=== PATIENT | female | born 1995 | race Caucasian/White ===

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

== ENCOUNTER 2018-03-01 02:19 | Emergency (ER) | payer OTHER ==
[~2018-03-01] VITALS: Ht 149.8 cm; Wt 54.9 kg
[2018-03-01] MEDS ORDERED: AMOXICILLIN500 M2 PO (03:38)
[2018-03-01 03:40] VITALS: BP 125/50
== END 2018-03-01 03:52 | disposition home or self-care (01) ==
LOC: ED 02:19
DX: J02.9 Acute pharyngitis, unspecified (principal)

== ENCOUNTER 2018-07-03 14:51 | Emergency (ER) | payer OTHER ==
[~2018-07-03] VITALS: Ht 152.4 cm; Wt 55.3 kg
[2018-07-03 14:51] VITALS: BP 125/59
[~2018-07-03 14:51] MED LIST changes: +AMOXICILLIN500 M2 PO; +Tobrex Ophth S2.5 ML OPH
[2018-07-03] MEDS ORDERED: ZITHROMAX250 MG PO (15:52)
== END 2018-07-03 16:00 | disposition home or self-care (01) ==
LOC: ED 14:51
DX: J02.9 Acute pharyngitis, unspecified (principal); H66.92 Otitis media, unspecified, left ear; Z79.2 Long term (current) use of antibiotics

== ENCOUNTER 2019-07-08 23:18 | Emergency (ER) | payer OTHER ==
[~2019-07-08] VITALS: Ht 154.9 cm; Wt 58.1 kg
[~2019-07-08 23:18] MED LIST changes: +ZITHROMAX250 MG PO
[2019-07-08 23:54] VITALS: BP 102/75
[2019-07-09 00:34] LABS: HEMATOCRIT 39.9 % (37.0-47.0); HEMOGLOBIN 13.2 g/dl (12.0-16.0); MEAN CELL VOLUME 89.5 fl (81.0-99.0); MEAN CORPUSCULAR HGB 29.6 pg (27.0-31.0); MEAN CORPUSCULAR HGB CONC 33.1 g/dl (33.0-37.0); MEAN PLATELET VOLUME 9.7 fl (9.6-12.3); PLATELET COUNT AUTOMATED 244 10*3/uL (130-400); RED BLOOD COUNT 4.46 10*6/uL (4.10-5.10); RED CELL DISTRI WIDTH 12.6 % (0-14.5); WHITE BLOOD COUNT 11.4 10*3/uL (4.8-10.8)
[2019-07-09 00:49] LABS: ALBUMIN 4.1 gm/dl (3.1-4.5); ALKALINE PHOSPHATASE 68 U/L (45-117); BUN 8 mg/dl (7-24); CHLORIDE 103 mmol/L (98-107); CREATININE 0.77 mg/dL (0.55-1.02); POTASSIUM 3.3 mmol/L (3.5-5.1); SGOT/AST 11 IU/L (3-35); SGPT/ALT 16 U/L (12-78); SODIUM 136 mmol/L (136-145); TOTAL PROTEIN 7.9 gm/dL (6.4-8.2)
[2019-07-09 00:53] LABS: PLATELET SUFFICIENCY NORMAL (NORMAL); TOTAL CELLS COUNTED 100 #CELLS
[2019-07-09 02:11] LABS: BILIRUBIN NEGATIVE (NEGATIVE); BLOOD NEGATIVE (NEGATIVE); COLOR YELLOW (YELLOW); GLUCOSE NEGATIVE (NEGATIVE); KETONE NEGATIVE (NEGATIVE); LEUKO ESTERASE NEGATIVE (NEGATIVE); NITRITE NEGATIVE (NEGATIVE); PH 7.5 (5.0-9.0)
[2019-07-09 02:16] LABS: EPITHELIAL CELLS 45-50
[2019-07-09 02:17] LABS: CLARITY SL CLOUDY (CLEAR)
[2019-07-09] MEDS ORDERED: TAMIFLU 75MG CA75 MG PO (03:05)
== END 2019-07-09 01:17 | disposition home or self-care (01) ==
LOC: ED 23:18
PROVIDERS: Physician Assistant
DX: J11.1 Influenza due to unidentified influenza virus with other respiratory manifestations (principal); B34.9 Viral infection, unspecified; J45.909 Unspecified asthma, uncomplicated

== ENCOUNTER 2020-11-02 02:19 | Emergency (ER) | payer OTHER ==
[~2020-11-02] VITALS: Ht 162.5 cm; Wt 61.7 kg
[~2020-11-02 02:19] MED LIST changes: +TAMIFLU 75MG CA75 MG PO
[2020-11-02 02:42] VITALS: BP 137/81
[2020-11-02] MEDS ORDERED: PENICILLIN VK500 MG PO (02:52)
== END 2020-11-02 03:17 | disposition home or self-care (01) ==
LOC: ED 02:19
DX: K04.7 Periapical abscess without sinus (principal); J45.909 Unspecified asthma, uncomplicated; Z79.899 Other long term (current) drug therapy; Z79.2 Long term (current) use of antibiotics

== ENCOUNTER 2020-12-10 14:59 | Emergency (ER) | payer OTHER ==
[~2020-12-10] VITALS: Ht 152.4 cm; Wt 54.9 kg
[~2020-12-10 14:59] MED LIST changes: +PENICILLIN VK500 MG PO
[2020-12-10 15:14] VITALS: BP 118/71
[2020-12-10 17:25] LABS: BILIRUBIN Negative (Negative); BLOOD Negative (Negative); CLARITY Turbid (Clear); COLOR Yellow (Yellow); GLUCOSE Negative (Negative); KETONE Negative (Negative); LEUKO ESTERASE 2+ (Negative); NITRITE Negative (Negative)
[2020-12-10 17:27] LABS: PH 8.5 (4.5-8.0)
[2020-12-10 17:39] LABS: BACTERIA 2+
[2020-12-10] MEDS ORDERED: DOXYCYCLINE100 M3 PO (17:40)
[2020-12-10] MEDS ORDERED: FLAGYL500 MG PO (17:40)
== END 2020-12-10 18:00 | disposition home or self-care (01) ==
LOC: ED 14:59
PROVIDERS: Physician Assistant
DX: Z20.2 Contact with and (suspected) exposure to infections with a predominantly sexual mode of transmission (principal); F17.200 Nicotine dependence, unspecified, uncomplicated; Z79.899 Other long term (current) drug therapy

== ENCOUNTER 2021-12-12 12:11 | Emergency (ER) | payer OTHER ==
[~2021-12-12] VITALS: Wt 57.2 kg
[~2021-12-12 12:11] MED LIST changes: +DOXYCYCLINE100 M3 PO; +FLAGYL500 MG PO
[2021-12-12 12:18] VITALS: BP 116/70
[2021-12-12 12:44] LABS: BILIRUBIN Negative (Negative); BLOOD Trace-Lysed (Negative); CLARITY Cloudy (Clear); COLOR Yellow (Yellow); GLUCOSE Negative (Negative); KETONE Negative (Negative); LEUKO ESTERASE 1+ (Negative); NITRITE Negative (Negative); PH 5.5 (4.5-8.0)
[2021-12-12 12:51] LABS: BACTERIA 3+; EPITHELIAL CELLS TNTC; MUCOUS 3+
== END 2021-12-12 13:00 | disposition home or self-care (01) ==
LOC: ED 12:11
PROVIDERS: Emergency Medicine
DX: K80.80 Other cholelithiasis without obstruction (principal); R10.2 Pelvic and perineal pain

== ENCOUNTER → 2021-12-15 | Outpatient (CLI) | payer OTHER | END | disposition home or self-care (01) | LOC: US 08:30 | PROVIDERS: ATTEND Emergency Medicine | DX: K50.80 Crohn's disease of both small and large intestine without complications (principal); R10.2 Pelvic and perineal pain ==

== ENCOUNTER 2022-07-18 23:01 | Emergency (ER) | payer OTHER ==
[~2022-07-18] VITALS: Ht 152.4 cm; Wt 55.8 kg
[2022-07-18 23:07] VITALS: BP 131/81
[2022-07-19] MEDS ORDERED: AMOX-CLAV 875-1 EACH PO (00:08)
== END 2022-07-19 00:15 | disposition home or self-care (01) ==
LOC: ED 23:01
DX: J02.9 Acute pharyngitis, unspecified (principal); Z20.822 Contact with and (suspected) exposure to COVID-19; R05.9 Cough, unspecified; R50.9 Fever, unspecified; R52 Pain, unspecified; Z79.2 Long term (current) use of antibiotics; Z79.899 Other long term (current) drug therapy

== ENCOUNTER 2022-11-25 16:06 | Emergency (ER) | payer OTHER ==
[~2022-11-25] VITALS: Ht 152.4 cm; Wt 54.4 kg
[~2022-11-25 16:06] MED LIST changes: +AMOX-CLAV 875-1 EACH PO
[2022-11-25 16:20] VITALS: BP 115/71
== END 2022-11-25 18:41 | disposition left against medical advice (07) ==
LOC: ED 16:06
DX: N89.9 Noninflammatory disorder of vagina, unspecified (principal); Z53.21 Procedure and treatment not carried out due to patient leaving prior to being seen by health care provider

== ENCOUNTER 2023-03-24 13:44 | Emergency (ER) | payer OTHER ==
[~2023-03-24] VITALS: Ht 152.4 cm; Wt 56.7 kg
[2023-03-24 13:53] VITALS: BP 118/74
[2023-03-24] MEDS ORDERED: AMOX-CLAV 875-1 EACH PO (14:00)
== END 2023-03-24 14:13 | disposition home or self-care (01) ==
LOC: ED 13:44
DX: J02.9 Acute pharyngitis, unspecified (principal); H66.91 Otitis media, unspecified, right ear; R50.9 Fever, unspecified

== ENCOUNTER 2023-06-24 02:12 | Emergency (ER) | payer OTHER ==
[2023-06-24 02:25] VITALS: BP 125/65
[2023-06-24 02:52] LABS: BILIRUBIN Negative (Negative); BLOOD 1+ (Negative); CLARITY Cloudy (Clear); COLOR Yellow (Yellow); GLUCOSE Negative (Negative); KETONE Negative (Negative); LEUKO ESTERASE Trace (Negative); NITRITE Negative (Negative); PH 5.5 (4.5-8.0); SPECIFIC GRAVITY 1.025 (1.001-1.030)
[2023-06-24 03:01] LABS: BACTERIA TRACE; EPITHELIAL CELLS TNTC; RBC 0-2 rbc/hpf (0-2)
== END 2023-06-24 03:32 | disposition home or self-care (01) ==
LOC: ED 02:12
PROVIDERS: Internal Medicine
DX: Z32.01 Encounter for pregnancy test, result positive (principal); J45.909 Unspecified asthma, uncomplicated; Z79.899 Other long term (current) drug therapy

== ENCOUNTER → 2023-07-11 | Outpatient (CLI) | payer OTHER | END | disposition home or self-care (01) | LOC: US 15:00 | PROVIDERS: ATTEND Nurse Practitioner Women's Health | DX: Z34.81 Encounter for supervision of other normal pregnancy, first trimester (principal); Z3A.01 Less than 8 weeks gestation of pregnancy ==

== ENCOUNTER 2023-07-24 11:02 | Emergency (ER) | payer OTHER ==
[~2023-07-24] VITALS: Wt 54.4 kg
[2023-07-24 11:11] VITALS: BP 115/47
[2023-07-24 12:27] LABS: BASO % 0.3 % (0.0-1.0); HEMATOCRIT 37.2 % (37.0-47.0); LYMPH # 1.7 10*3/uL (1.3-4.4); LYMPH % 16.3 % (27.0-41.0); MEAN CELL VOLUME 85.5 fl (81.0-99.0); MEAN CORPUSCULAR HGB 29.9 pg (27.0-31.0); MEAN CORPUSCULAR HGB CONC 34.9 g/dl (33.0-37.0); MEAN PLATELET VOLUME 8.7 fl (9.6-12.3); MONO # 0.4 10*3/uL (0.1-1.0); MONO % 3.7 % (3.0-9.0); NEUT # 8.1 10*3/uL (2.3-7.9); NEUT % 79.4 % (47.0-73.0); PLATELET COUNT AUTOMATED 321 10*3/uL (130-400); RED BLOOD COUNT 4.35 10*6/uL (4.10-5.10); RED CELL DISTRI WIDTH 12.6 % (0-14.5); WHITE BLOOD COUNT 10.2 10*3/uL (4.8-10.8)
[2023-07-24 12:52] LABS: BILIRUBIN Negative (Negative); BLOOD Negative (Negative); CLARITY Clear (Clear); COLOR Yellow (Yellow); GLUCOSE Negative (Negative); KETONE 4+ (Negative); LEUKO ESTERASE Trace (Negative); NITRITE Negative (Negative); PH 5.5 (4.5-8.0); SPECIFIC GRAVITY 1.025 (1.001-1.030); UROBILINOGEN 0.2 E.U./dl (0.0-1.0)
[2023-07-24 13:01] LABS: BACTERIA 2+; MUCOUS 1+
[2023-07-24 13:02] LABS: ALKALINE PHOSPHATASE 40 U/L (46-116); BUN 8 mg/dl (9-23); CHLORIDE 106 mmol/L (98-107); LIPASE 33 U/L (12-53); POTASSIUM 3.8 mmol/L (3.4-5.1); TOTAL PROTEIN 7.2 gm/dL (6.0-8.0)
[2023-07-24 13:04] LABS: BETA-HCG, QUANT > 200000.0 mIU/mL (3-10); SGPT/ALT < 7 U/L (5-49)
[2023-07-24] MEDS ORDERED: CEPHALEXIN500 M1 PO (14:07)
== END 2023-07-24 15:57 | disposition home or self-care (01) ==
LOC: ED 11:02
PROVIDERS: Nurse Practitioner Family
DX: O23.41 Unspecified infection of urinary tract in pregnancy, first trimester (principal); N39.0 Urinary tract infection, site not specified; O21.9 Vomiting of pregnancy, unspecified; J45.909 Unspecified asthma, uncomplicated; R10.2 Pelvic and perineal pain; Z3A.09 9 weeks gestation of pregnancy; Z86.718 Personal history of other venous thrombosis and embolism

== ENCOUNTER 2023-08-21 14:57 | Emergency (ER) | payer OTHER ==
[~2023-08-21] VITALS: Ht 152.4 cm; Wt 51.3 kg
[~2023-08-21 14:57] MED LIST changes: +CEPHALEXIN500 M1 PO
[2023-08-21 15:14] VITALS: BP 132/74
[2023-08-21 15:44] LABS: BASO % 0.3 % (0.0-1.0); EOS % 0.1 % (1.0-4.0); HEMATOCRIT 39.4 % (37.0-47.0); LYMPH # 1.3 10*3/uL (1.3-4.4); LYMPH % 11.1 % (27.0-41.0); MEAN CELL VOLUME 88.3 fl (81.0-99.0); MEAN CORPUSCULAR HGB 29.6 pg (27.0-31.0); MEAN CORPUSCULAR HGB CONC 33.5 g/dl (33.0-37.0); MEAN PLATELET VOLUME 8.7 fl (9.6-12.3); MONO # 0.4 10*3/uL (0.1-1.0); MONO % 3.3 % (3.0-9.0); NEUT # 9.7 10*3/uL (2.3-7.9); NEUT % 84.8 % (47.0-73.0); PLATELET COUNT AUTOMATED 370 10*3/uL (130-400); RED BLOOD COUNT 4.46 10*6/uL (4.10-5.10); RED CELL DISTRI WIDTH 12.4 % (0-14.5); WHITE BLOOD COUNT 11.4 10*3/uL (4.8-10.8)
[2023-08-21 16:05] LABS: BILIRUBIN Negative (Negative); BLOOD Negative (Negative); CLARITY Cloudy (Clear); COLOR Dark Yellow (Yellow); GLUCOSE Negative (Negative); KETONE 3+ (Negative); LEUKO ESTERASE 1+ (Negative); NITRITE Negative (Negative); PH 5.5 (4.5-8.0); SPECIFIC GRAVITY 1.025 (1.001-1.030)
[2023-08-21 16:09] LABS: ALKALINE PHOSPHATASE 48 U/L (46-116); BUN 7 mg/dl (9-23); CHLORIDE 105 mmol/L (98-107); LIPASE 33 U/L (12-53); POTASSIUM 3.7 mmol/L (3.4-5.1); SGPT/ALT 51 U/L (5-49); TOTAL PROTEIN 7.4 gm/dL (6.0-8.0)
[2023-08-21 16:13] LABS: URINE AMPHETAMINES Negative (1000ng/ml); URINE BARBITURATES Negative (200ng/ml); URINE BENZODIAZEPINES Negative (200ng/ml); URINE CANNABINOIDS (THC) Negative (50ng/ml); URINE COCAINE Negative (300ng/ml); URINE METHADONE Negative (300ng/ml); URINE OPIATES Negative (300ng/ml); URINE PHENCYCLIDINE Negative (25ng/ml)
[2023-08-21 16:21] LABS: BACTERIA 3+; MUCOUS 3+; WBC 21-30 wbc/hpf (0-5)
[2023-08-21] MEDS ORDERED: ONDANSETRON4 MG SL (17:51)
[2023-08-21] MEDS ORDERED: OMNICEF300 MG PO (17:51)
== END 2023-08-21 17:56 | disposition home or self-care (01) ==
LOC: ED 14:57
PROVIDERS: Family Medicine
DX: O23.41 Unspecified infection of urinary tract in pregnancy, first trimester (principal); N39.0 Urinary tract infection, site not specified; O21.9 Vomiting of pregnancy, unspecified; Z86.718 Personal history of other venous thrombosis and embolism; J45.909 Unspecified asthma, uncomplicated; Z3A.13 13 weeks gestation of pregnancy; Z79.899 Other long term (current) drug therapy; F17.210 Nicotine dependence, cigarettes, uncomplicated

== ENCOUNTER 2023-12-25 16:07 | Emergency (ER) | payer OTHER ==
[~2023-12-25] VITALS: Ht 152.4 cm; Wt 58.5 kg
[~2023-12-25 16:07] MED LIST changes: +OMNICEF300 MG PO; +ONDANSETRON4 MG SL
[2023-12-25 16:13] VITALS: BP 131/80
[2023-12-25 16:44] LABS: BILIRUBIN Negative (Negative); BLOOD Negative (Negative); CLARITY Cloudy (Clear); COLOR Yellow (Yellow); GLUCOSE Negative (Negative); KETONE Negative (Negative); LEUKO ESTERASE Trace (Negative); NITRITE Negative (Negative); PH 6.5 (4.5-8.0)
[2023-12-25 17:00] LABS: BACTERIA 3+; EPITHELIAL CELLS 21-30; MUCOUS 2+
[2023-12-25] MEDS ORDERED: OMNICEF300 MG PO (17:17)
[2023-12-25] MEDS ORDERED: AZITHROMYCIN 250 MG TAB PO ONE (17:20)
[2023-12-25] MEDS ORDERED: Water, Sterile 10 ML VIAL ONE (17:50)
== END 2023-12-25 17:24 | disposition home or self-care (01) ==
LOC: ED 16:07
PROVIDERS: Nurse Practitioner Family
DX: O23.41 Unspecified infection of urinary tract in pregnancy, first trimester (principal); N39.0 Urinary tract infection, site not specified; Z20.2 Contact with and (suspected) exposure to infections with a predominantly sexual mode of transmission; J45.909 Unspecified asthma, uncomplicated; Z86.718 Personal history of other venous thrombosis and embolism; Z3A.01 Less than 8 weeks gestation of pregnancy

== ENCOUNTER 2023-12-29 19:26 | Emergency (ER) | payer OTHER ==
[~2023-12-29] VITALS: Ht 152.4 cm; Wt 58.5 kg
[2023-12-29 19:32] VITALS: BP 114/68
== END 2023-12-29 20:06 | disposition home or self-care (01) ==
LOC: ED 19:26
DX: O98.811 Other maternal infectious and parasitic diseases complicating pregnancy, first trimester (principal); J45.909 Unspecified asthma, uncomplicated; Z86.718 Personal history of other venous thrombosis and embolism; Z3A.01 Less than 8 weeks gestation of pregnancy

== ENCOUNTER 2024-01-02 18:24 | Emergency (ER) | payer OTHER ==
[~2024-01-02] VITALS: Ht 152.4 cm; Wt 58.5 kg
[2024-01-02 18:43] VITALS: BP 157/83
[2024-01-02] MEDS ORDERED: CEFDINIR300 MG PO (18:44)
[2024-01-02] MEDS ORDERED: FEROSUL325 M1 PO (18:44)
[2024-01-02 19:32] LABS: BILIRUBIN Negative (Negative); BLOOD 1+ (Negative); CLARITY Cloudy (Clear); COLOR Yellow (Yellow); GLUCOSE Negative (Negative); KETONE 1+ (Negative); LEUKO ESTERASE 3+ (Negative); NITRITE Negative (Negative); PH 6.5 (4.5-8.0); SPECIFIC GRAVITY 1.015 (1.001-1.030)
[2024-01-02 19:58] LABS: BACTERIA 2+; MUCOUS 1+; WBC 41-50 wbc/hpf (0-5)
[2024-01-02] MEDS ORDERED: Amoxicillin/Clavulanate Pota 875 MG TAB PO ONE (20:05)
[2024-01-02] MEDS ORDERED: AMOX-CLAV 875-1 EACH PO (20:12)
[2024-01-02] MEDS ORDERED: METRONIDAZOLE 500 MG TAB PO ONE (20:15)
== END 2024-01-02 20:39 | disposition home or self-care (01) ==
LOC: ED 18:24
PROVIDERS: Internal Medicine
DX: O23.43 Unspecified infection of urinary tract in pregnancy, third trimester (principal); N39.0 Urinary tract infection, site not specified; Z3A.32 32 weeks gestation of pregnancy; A59.9 Trichomoniasis, unspecified; J45.909 Unspecified asthma, uncomplicated; Z86.718 Personal history of other venous thrombosis and embolism

== ENCOUNTER 2024-02-08 15:03 | Emergency (ER) | payer OTHER ==
[~2024-02-08] VITALS: Ht 154.9 cm; Wt 59.4 kg
[~2024-02-08 15:03] MED LIST changes: +CEFDINIR300 MG PO; +FEROSUL325 M1 PO
[2024-02-08] MEDS ORDERED: Enoxaparin Sodium 60 MG/0.6 ML SYR SC ONE (15:45)
[2024-02-08 15:46] LABS: HEMATOCRIT 27.9 % (37.0-47.0); MEAN CELL VOLUME 83.8 fl (81.0-99.0); MEAN CORPUSCULAR HGB 24.6 pg (27.0-31.0); MEAN CORPUSCULAR HGB CONC 29.4 g/dl (33.0-37.0); PLATELET COUNT AUTOMATED 396 10*3/uL (130-400); RED BLOOD COUNT 3.33 10*6/uL (4.10-5.10); RED CELL DISTRI WIDTH 16.8 % (0-14.5); WHITE BLOOD COUNT 14.1 10*3/uL (4.8-10.8)
[2024-02-08 15:49] LABS: MANUAL DIFF REFLEX YES
[2024-02-08 15:58] LABS: ACT PARTIAL THROMBO TIME 22.5 SECONDS (20.0-32.1)
[2024-02-08 16:04] LABS: ALKALINE PHOSPHATASE 169 U/L (46-116); CHLORIDE 105 mmol/L (98-107); POTASSIUM 3.5 mmol/L (3.4-5.1); SGPT/ALT 13 U/L (5-49); TOTAL PROTEIN 6.2 gm/dL (6.0-8.0)
[2024-02-08 16:06] LABS: BUN < 5 mg/dl (9-23)
[2024-02-08 16:14] LABS: BASOPHILS 1 % (0-1); BURR CELLS FEW; PLATELET SUFFICIENCY NORMAL (NORMAL); TOTAL CELLS COUNTED 100 #CELLS
[2024-02-08 16:19] LABS: ABG BASE EXCESS -2.6 mmol/L (-2.0-2.0); ARTERIAL BLOOD GAS PH 7.489 (7.35-7.45)
[2024-02-08] MEDS ORDERED: SODIUM CHLORIDE 0.9% 100 ML BAG IV ONE (16:45)
[2024-02-08] MEDS ORDERED: IOHEXOL 350 MG/ML 100 ML VIAL IV ONE (16:45)
[2024-02-08 22:04] VITALS: BP 122/63
== END 2024-02-08 22:17 | disposition short-term general hospital (02) ==
LOC: ED 15:03
PROVIDERS: Emergency Medicine
DX: O99.513 Diseases of the respiratory system complicating pregnancy, third trimester (principal); R06.02 Shortness of breath; J45.909 Unspecified asthma, uncomplicated; Z3A.36 36 weeks gestation of pregnancy; Z86.718 Personal history of other venous thrombosis and embolism